=== PATIENT | female | born 1945 | race Caucasian/White ===

== ENCOUNTER 2024-11-22 22:51 | Emergency (ER) | payer MEDICARE, BC ==
[~2024-11-22] VITALS: Ht 160 cm; Wt 76.7 kg
[2024-11-23] MEDS ORDERED: KETOROLAC TROMETHAMINE 15 MG/ML VIAL ONE (01:13)
[2024-11-23] MEDS: KETOROLAC TROMETHAMINE 15 MG/ML VIAL IM ONE (01:14)
[2024-11-23] MEDS ORDERED: CYCL5TAB PO (02:47)
[2024-11-23 02:58] VITALS: BP 148/88; TEMP 97.7; O2SAT 97
== END 2024-11-23 02:59 | disposition home or self-care (01) ==
LOC: ER 22:54
DX: S29.8XXA Other specified injuries of thorax, initial encounter (principal); M54.6 Pain in thoracic spine; E78.5 Hyperlipidemia, unspecified; I10 Essential (primary) hypertension; Z60.2 Problems related to living alone; X58.XXXA Exposure to other specified factors, initial encounter; Y93.89 Activity, other specified; Y92.89 Other specified places as the place of occurrence of the external cause; Y99.8 Other external cause status
CPT/HCPCS: 99285; 72128; 96372; J1885